=== PATIENT | male | born 1960 | race Caucasian/White ===

== ENCOUNTER 2018-07-16 20:34 | Emergency (ER) | payer OTHER ==
--- OUTSIDE RECORDS SUMMARY | 2018-07-16 20:37 | XMS REPORT | Clinical Summary ---
:1960 Author Organization [facility] Address [address] [place] [address] Care Team Providers Name Role Phone Juliet Parker Primary Care Provider Unavailable Allergies No Known Allergies Medications Medication Sig Dispensed Refills Start Date End Date Status INVOKAMET 150-1,000 Take 1 tablet 1 12/30/2016 Active mg tablet by mouth 2 (two) times a day. carvedilol (COREG) TAKE TWO 1 01/13/2017 Active 25 MG tablet TABLETS BY MOUTH TWICE DAILY. gemfibrozil (LOPID) TAKE BY MOUTH 1 11/27/2016 Active 600 MG tablet TABLET 2 TIMES A DAY losartan-hydrochlor Take 1 tablet 1 11/29/2016 Active othiazide (HYZAAR) by mouth 2 50-12.5 mg per (two) times a tablet day. pantoprazole Take 20 mg by 0 01/06/2017 Active (PROTONIX) 20 MG EC mouth 2 (two) tablet times a day. CIALIS 20 mg tablet TAKE 1 TABLET 2 12/06/2016 Active BY MOUTH 30 MINUTES PRIOR TO ACTIVITY multivitamin with Take 1 tablet 0 Active minerals tablet by mouth daily. aspirin (ECOTRIN) Take 81 mg by 0 Active 81 MG enteric mouth daily. coated tablet simvastatin (ZOCOR) Take 40 mg by 1 02/18/2017 Active 40 MG tablet mouth nightly. omega-3 acid ethyl Take 2 g by 0 Active esters (LOVAZA) 1 mouth 2 (two) gram capsule times a day. minocycline Take 115 mg by 0 Active (SOLODYN) 115 mg mouth daily. tablet extended release 24 hr buPROPion XL Take 150 mg by 0 Active (WELLBUTRIN XL) 150 mouth 2 (two) MG 24 hr tablet times a day. insulin degludec Inject 60 0 Active (TRESIBA FLEXTOUCH Units under U-100) 100 unit/mL the skin (3 mL) insulin pen daily. potassium 99 mg Take 1 capsule 0 Active tablet by mouth daily. cholecalciferol, Take 5,000 0 Active vitamin D3, Units by mouth (VITAMIN D3) 1,000 daily. unit tablet niacin 500 MG Take 500 mg by 0 Active tablet mouth daily with breakfast. clopidogrel TAKE 1 TABLET 90 tablet 0 06/12/2018 Active (PLAVIX) 75 mg BY MOUTH EVERY tablet DAY clopidogrel Take 75 mg by 3 12/19/2017 03/13/2018 Discontinued (PLAVIX) 75 mg mouth daily. tablet clopidogrel Take 1 tablet 90 tablet 0 03/13/2018 06/10/2018 Discontinued (PLAVIX) 75 mg (75 mg total) tablet by mouth daily. Active Problems Problem Noted Date Stented coronary artery 05/03/2017 Coronary artery disease involving [place] heart with angina pectoris 03/24/2017 Overview: Added automatically from request for surgery [id number] CAD in [place] artery 03/22/2017 Abnormal stress test 03/22/2017 Chest pain 02/15/2017 Abnormal EKG 02/15/2017 Encounters Date Type Specialty Care Team Description 06/10/2018 Refill Cardiology Jonathan Colbert MD Med Refill 03/13/2018 Orders Only Cardiology Tristen Martin MA 08/16/2017 Office Visit Cardiology Jonathan Colbert MD CAD in [place] artery (Primary Dx); Stented coronary artery after 07/15/2017 Social History Tobacco Use Types Packs/Day Years Used Date Current Some Day Smoker Started: 03/30/2017 Smokeless Tobacco: Never Used Alcohol Use Drinks/Week oz/Week Comments No Sex Assigned at Date Recorded Not on file Job Start Date Occupation Industry Not on file Not on file Not on file Travel History Travel Start Travel End No recent travel history available. Last Filed Vital Signs Vital Sign Reading Time Taken Blood Pressure 130/59 08/16/2017 2:38 PM CDT Pulse 84 08/16/2017 2:38 PM CDT Temperature - - Respiratory Rate - - Oxygen Saturation - - Inhaled Oxygen Concentration - - Weight 125 kg (276 lb) 08/16/2017 2:38 PM CDT Height 177.8 cm (5' 10") 08/16/2017 2:38 PM CDT Body Mass Index 39.6 08/16/2017 2:38 PM CDT Plan of Treatment Date Type Specialty Care Team Description 07/25/2018 Office Visit Cardiology Jonathan Colbert MD [address] [facility] [address] [place] [address] Health Maintenance Due Date Last Done Comments COLON CANCER SCREENING 11/23/2011 SHINGLES VACCINES (#1) 11/23/2011 INFLUENZA VACCINE 11/23/2017 Implants Implanted Type Area Milk Collector Device Shelf Model / Identifier Expiration Serial / Date Lot Stent Coronary Syst Synergy (Mr) 3.00mm X 8mm - [id number] Coronary N/A: BSC 11/10/2017 [id number] / Implanted: 03/30/2017 (Quantity not on file) Stents N/A INTERVENTIONAL / CARDIOLOGY [id number] Results Not on fileafter 07/15/2017 Insurance Payer Benefit Plan / Group Subscriber ID Type Phone Address AETNA AETNA HMO,POS,EPO, MC/EC xxxxxxxxx HMO (Work) Advance Directives Patient has advance care planning documents on file. For more information, please contact:Ben Sánchez[address] [place] [address]
[2018-07-16] MEDS ORDERED: cloNIDine HCl 0.1 MG TAB ONE (21:37)
--- NOTE | 2018-07-16 22:59 | EDPHYS ---
Physician Documentation [facility] Name: Donnie Piedra Age: 57 yrs Sex: Male : 1960 Arrival Date: 07/16/2018 Time: 20:37 Bed 23 Private MD: ED Physician Kirill Morrison HPI: 07/17 06:07 This 57 yrs old Male presents to ER via Ambulatory with complaints of High tw4 Blood Pressure. 06:07 The patient has elevated blood pressure and discovered this at home. Onset: The tw4 symptoms/episode began/occurred today. Modifying factors: The symptoms are aggravated by The symptoms are alleviated by. Associated signs and symptoms: The patient has no apparent associated signs or symptoms. Severity of symptoms: At its worst the blood pressure was moderate, in the emergency department the blood pressure is improved, moderately. The patient has not experienced similar symptoms in the past. Historical: - Allergies: 07/16 21:15 No Known Allergies; bb - Home Meds: 21:15 aspirin 81 mg Oral chew 1 tab once daily [Active]; niacin 500 mg Oral tab 1 tab daily bb [Active]; Invokamet 150-1,000 mg oral tab 1 tab 2 times per day [Active]; losartan-hydrochlorothiazide 50-12.5 mg oral tab 1 tab once daily [Active]; carvedilol 25 mg oral tab 1 tab every 12 hours [Active]; gemfibrozil 600 mg Oral tab 1 tab 2 times per day [Active]; pravastatin 80 mg oral tab 1 tab once daily [Active]; cetirizine 10 mg oral tab 1 tab once daily [Active]; pantoprazole 20 mg oral TbEC 1 tab 2 times per day [Active]; - PMHx: 21:15 Diabetes - IDDM; Hypertension; CVD; Pancreatitis; bb - PSHx: 21:15 heart sten; Carpal Tunnel Repair; bb - Immunization history:: Adult Immunizations up to date, Flu vaccine is up to date. - Social history:: Smoking status: Patient uses tobacco products, pt quit smoking May 12, 2018 with 30 year history of smoking. - Ebola Screening: : No symptoms or risks identified at this time. ROS: 07/17 06:07 Constitutional: Negative for fever, chills, and weight loss, Eyes: Negative for injury, tw4 pain, redness, and discharge, Cardiovascular: Negative for chest pain, palpitations, and edema, Respiratory: Negative for shortness of breath, cough, wheezing, and pleuritic chest pain, Abdomen/GI: Negative for abdominal pain, nausea, vomiting, diarrhea, and constipation, Back: Negative for injury and pain, MS/Extremity: Negative for injury and deformity, Skin: Negative for injury, rash, and discoloration, Neuro: Negative for headache, weakness, numbness, tingling, and seizure. Exam: 06:07 Constitutional: This is a well developed, well nourished patient who is awake, alert, tw4 and in no acute distress. Head/Face: Normocephalic, atraumatic. Chest/axilla: Normal chest wall appearance and motion. Nontender with no deformity. No lesions are appreciated. Cardiovascular: Regular rate and rhythm with a normal S1 and S2. No gallops, murmurs, or rubs. Normal PMI, no JVD. No pulse deficits. Respiratory: Lungs have equal breath sounds bilaterally, clear to auscultation and percussion. No rales, rhonchi or wheezes noted. No increased work of breathing, no retractions or nasal flaring. Abdomen/GI: Soft, non-tender, with normal bowel sounds. No distension or tympany. No guarding or rebound. No evidence of tenderness throughout. Back: No spinal tenderness. No costovertebral tenderness. Full range of motion. MS/ Extremity: Pulses equal, no cyanosis. Neurovascular intact. Full, normal range of motion. Neuro: Awake and alert, GCS 15, oriented to person, place, time, and situation. Cranial nerves II-XII grossly intact. Motor strength 5/5 in all extremities. Sensory grossly intact. Cerebellar exam normal. Normal gait. Vital Signs: 07/16 21:19 BP 170 / 88; Pulse 86; Resp 16 S; Temp 98.6(O); Pulse Ox 95% on R/A; Weight 133.81 kg bb (R); Height 5 ft. 10 in. (177.80 cm) (R); Pain 0/10; 22:46 BP 155 / 83; Pulse 80; Resp 18; Pulse Ox 98% on R/A; la1 23:14 BP 134 / 77; Pulse 80; Resp 19; Pulse Ox 100% on R/A; ca1 21:19 Body Mass Index 42.33 (133.81 kg, 177.80 cm) alysia MDM: 21:11 Patient medically screened. tw4 07/17 06:07 Differential diagnosis: hypertensive crisis, Malignant HTN. Data reviewed: vital signs, tw4 nurses notes. Data interpreted: cafeteria monitor: rhythm is normal sinus rhythm, Pulse oximetry:. Counseling: I had a detailed discussion with the patient and/or guardian regarding: the historical points, exam findings, and any diagnostic results supporting the discharge/admit diagnosis. Special discussion: I discussed with the patient/guardian in detail that at this point there is no indication for admission to the hospital. It is understood, however, that if the symptoms persist or worsen the patient needs to return immediately for re-evaluation. Administered Medications: 07/16 21:27 Drug: cloNIDine 0.1 mg Route: PO; ca1 23:00 Follow up: Response: No adverse reaction; Blood pressure is lowered ca1 Disposition: 07/16/18 22:57 Discharged to Home. Impression: Hypertensive crisis. - Condition is Stable. - Discharge Instructions: Hypertension. - Medication Reconciliation Form, Thank You Letter, Antibiotic Education, Prescription Opioid Use form. - Follow up: Private Physician; When: Upon discharge from the Emergency Department; Reason: If symptoms return, Recheck today's complaints, Continuance of care. - Problem is new. - Symptoms have improved. Signatures: Aleshia Peters, RN RN Kirill Morrison MD MD tw4 Rashida Lee RN RN ca1 Corrections: (The following items were deleted from the chart) 23:15 22:57 07/16/2018 22:57 Discharged to Home. Impression: Hypertensive crisis. Condition ca1 is Stable. Forms are Medication Reconciliation Form, Thank You Letter, Antibiotic Education, Prescription Opioid Use. Follow up: Private Physician; When: Upon discharge from the Emergency Department; Reason: If symptoms return, Recheck today's complaints, Continuance of care. Problem is new. Symptoms have improved. tw4
--- NOTE | 2018-07-16 22:59 | ER ---
Nurse's Notes [facility] Name: Donnie Piedra Age: 57 yrs Sex: Male : 1960 Arrival Date: 07/16/2018 Time: 20:37 Bed 23 Private MD: Diagnosis: Hypertensive crisis Presentation: 07/16 21:09 Presenting complaint: Patient states: his pulse has been high the last few days around bb 95 and he could feel it beating so tonight he checked his blood pressure at home and it was 208/114 which scared him so he came in to get it checked. Transition of care: patient was not received from another setting of care. Onset of symptoms was July 16, 2018. Risk Assessment: Do you want to hurt yourself or someone else? Patient reports no desire to harm self or others. Initial Sepsis Screen: Does the patient meet any 2 criteria? No. Patient's initial sepsis screen is negative. Does the patient have a suspected source of infection? No. Patient's initial sepsis screen is negative. Care prior to arrival: None. 21:09 Method Of Arrival: Ambulatory bb 21:09 Acuity: DWAIN 3 bb Historical: - Allergies: 21:15 No Known Allergies; bb - Home Meds: 21:15 aspirin 81 mg Oral chew 1 tab once daily [Active]; niacin 500 mg Oral tab 1 tab daily bb [Active]; Invokamet 150-1,000 mg oral tab 1 tab 2 times per day [Active]; losartan-hydrochlorothiazide 50-12.5 mg oral tab 1 tab once daily [Active]; carvedilol 25 mg oral tab 1 tab every 12 hours [Active]; gemfibrozil 600 mg Oral tab 1 tab 2 times per day [Active]; pravastatin 80 mg oral tab 1 tab once daily [Active]; cetirizine 10 mg oral tab 1 tab once daily [Active]; pantoprazole 20 mg oral TbEC 1 tab 2 times per day [Active]; - PMHx: 21:15 Diabetes - IDDM; Hypertension; CVD; Pancreatitis; bb - PSHx: 21:15 heart sten; Carpal Tunnel Repair; bb - Immunization history:: Adult Immunizations up to date, Flu vaccine is up to date. - Social history:: Smoking status: Patient uses tobacco products, pt quit smoking May 12, 2018 with 30 year history of smoking. - Ebola Screening: : No symptoms or risks identified at this time. Screenin:46 Abuse screen: Denies threats or abuse. Nutritional screening: No deficits noted. la1 Tuberculosis screening: No symptoms or risk factors identified. Fall Risk None identified. Assessment: 21:15 General: Appears in no apparent distress. comfortable, Behavior is calm, cooperative, ca1 appropriate for age. General: Reports. Pain: Denies pain. 21:15 Neuro: Level of Consciousness is awake, alert, obeys commands, Oriented to person, ca1 place, time, situation. 21:15 Neuro: Denies dizziness. Cardiovascular: Heart tones S1 S2 present Capillary refill < 3 ca1 seconds Patient's skin is warm and dry. Respiratory: Airway is patent Respiratory effort is even, unlabored, Respiratory pattern is regular, symmetrical, Breath sounds are clear bilaterally. GI: No deficits noted. No signs and/or symptoms were reported involving the gastrointestinal system. : No deficits noted. No signs and/or symptoms were reported regarding the genitourinary system. EENT: No deficits noted. No signs and/or symptoms were reported regarding the EENT system. Derm: Skin is intact, is healthy with good turgor, Skin is pink, warm \T\ dry. Musculoskeletal: Circulation, motion, and sensation intact. Capillary refill < 3 seconds. 22:32 Reassessment: Patient appears in no apparent distress at this time. Patient is alert, ca1 oriented x 3, equal unlabored respirations, skin warm/dry/pink. Patient states feeling better. Patient states symptoms have improved. Vital Signs: 21:19 BP 170 / 88; Pulse 86; Resp 16 S; Temp 98.6(O); Pulse Ox 95% on R/A; Weight 133.81 kg bb (R); Height 5 ft. 10 in. (177.80 cm) (R); Pain 0/10; 22:46 BP 155 / 83; Pulse 80; Resp 18; Pulse Ox 98% on R/A; la1 23:14 BP 134 / 77; Pulse 80; Resp 19; Pulse Ox 100% on R/A; ca1 21:19 Body Mass Index 42.33 (133.81 kg, 177.80 cm) ED Course: 20:37 Patient arrived in ED. es 21:09 Rashida Lee, SOCORRO is Primary Nurse. ca1 21:10 Kirill Morrison MD is Attending Physician. tw4 21:11 Triage completed. bb 21:19 Arm band placed on Patient placed in an exam room, on a stretcher, on phototypesetting equipment monitor, bb on pulse oximetry. Family accompanied patient. 22:46 Placed in gown. Bed in low position. Call light in reach. ca1 23:00 No provider procedures requiring assistance completed. Patient did not have IV access ca1 during this emergency room visit. Administered Medications: 21:27 Drug: cloNIDine 0.1 mg Route: PO; ca1 23:00 Follow up: Response: No adverse reaction; Blood pressure is lowered ca1 Outcome: 22:57 Discharge ordered by MD. tw4 23:00 Discharged to home ambulatory, with significant other. ca1 23: Condition: stable 23:00 Discharge instructions given to patient, Instructed on discharge instructions, follow up and referral plans. Demonstrated understanding of instructions, follow-up care. 23:15 Patient left the ED. ca1 Signatures: Chetna Espinoza Brenda RN RN bb Jd Silvestre RN RN la1 Kirill Morrison MD MD tw4 Rashida Lee RN RN ca1 Corrections: (The following items were deleted from the chart) 07/17 01:07/16 21:15 Pain: Denies pain. ca1 ca1 07/17 22:46 Placed in gown. Bed in low position. Call light in reach. la1 ca1 07/17 01:24 No provider procedures requiring assistance completed. ca1 ca1 01:24 Patient did not have IV access during this emergency room visit. ca1 ca1
[2018-07-16 23:37] VITALS: TEMP 98.6
[2018-07-16 23:39] VITALS: BP 134/77; O2SAT 100
== END 2018-07-16 23:15 | disposition home or self-care (01) ==
LOC: ER 20:34
DX: I16.9 Hypertensive crisis, unspecified (principal); E11.9 Type 2 diabetes mellitus without complications
CPT/HCPCS: 99283